=== PATIENT | female | born 1950 | race Caucasian/White ===

== ENCOUNTER 2017-11-21 08:19 | Outpatient (CLI) | payer OTHER ==
[~2017-11-21 08:19] MED LIST: SYNTHROID75 MCG
== END 2017-11-21 08:33 | disposition home or self-care (01) ==
LOC: RAD 501 08:19
DX: S82.022D Displaced longitudinal fracture of left patella, subsequent encounter for closed fracture with routine healing (principal)

== ENCOUNTER 2018-04-13 11:51 | Outpatient (CLI) | payer OTHER | END 2018-04-13 11:56 | disposition home or self-care (01) | LOC: RAD 11:51 | DX: M16.11 Unilateral primary osteoarthritis, right hip (principal); M16.12 Unilateral primary osteoarthritis, left hip; M17.11 Unilateral primary osteoarthritis, right knee; M17.12 Unilateral primary osteoarthritis, left knee; L40.59 Other psoriatic arthropathy ==